=== PATIENT | female | born 1960 | race Caucasian/White ===

== ENCOUNTER → 2016-07-02 | Outpatient (CLI) | payer MEDICARE, MEDICAID ==
[~2016-07-02] MED LIST: ALPR1TAB7 PO; CARI350T21 PO; DIPH50TA9 PO; DOXY100C46 PO; GAB400C PO; OXY20CRT PO; OXY5T PO; PHEN95TA PO
[2016-07-02 17:24] LABS: Basophils # (auto) 0 uL; Basophils % (auto) 0.4 % (0.0-2.0); Eosinophils # (auto) 0.2 uL; Eosinophils % (auto) 2.3 % (0.0-7.0); Hematocrit 44.5 % (36.0-46.0); Hemoglobin 14.1 g/dL (12.2-16.2); Lymphocytes # (auto) 2.7 uL; Lymphocytes % (auto) 26.9 % (10.0-50.0); Mean Corpuscular Hemoglobin 27.5 pg (28.0-32.0); Mean Corpuscular Hgb Conc. 31.6 g/dL (32.0-36.0); Mean Corpuscular Volume 87.1 fL (80.0-100.0); Monocytes # (auto) 0.4 uL; Monocytes % (auto) 4.5 % (0.0-12.0); Neutrophils # (auto) 6.5 uL; Neutrophils % (auto) 65.9 % (37.0-80.0); Platelet Count (auto) 402 10^3/uL (140-450); Red Cell Distribution Width 14.5 % (11.6-16.0); White Blood Cell 9.9 10^3/uL (4.4-10.8)
[2016-07-02 17:53] LABS: Albumin 3.4 g/dL (3.4-5.0); BUN/Creatinine Ratio 13.4; Bilirubin, Total 0.4 mg/dL (0.2-1.0); Calcium 8.9 mg/dL (8.5-10.1); Potassium 4.2 mmol/L (3.5-5.1); Total Protein 8.1 g/dL (6.4-8.2)
[2016-07-02 18:00] LABS: Urine Bilirubin Negative (Negative); Urine Color Yellow (Yellow); Urine Glucose Normal (Normal); Urine Ketone Negative (Negative); Urine Nitrite Negative (Negative); Urine RBC 8 /hpf (0 - 4); Urine Squamous Epithelial Cell FEW /hpf (<5); Urine Urobilinogen Normal (Negative); Urine WBC Clumps PRESENT /hpf (None Seen); Urine pH 7.5 (5.0-8.0)
[2016-07-02 18:01] LABS: Urine Blood 1+ /uL (Negative)
== END | disposition home or self-care (01) ==
LOC: LAB 16:41
PROVIDERS: ATTEND Family Medicine
DX: E11.9 Type 2 diabetes mellitus without complications (principal); E78.00 Pure hypercholesterolemia, unspecified; N39.0 Urinary tract infection, site not specified; D53.9 Nutritional anemia, unspecified
CPT/HCPCS: 36415; 80053; 80061; 81001; 84439; 84443; 85025; 87086

== ENCOUNTER 2020-03-12 08:03 | Inpatient (IN) | payer MEDICARE, MEDICAID ==
[~2020-03-12] VITALS: Ht 175.3 cm; Wt 121.9 kg
[~2020-03-12 08:03] MED LIST changes: -CARI350T21 PO; +CYCL10TA6 PO; -DIPH50TA9 PO; -DOXY100C46 PO; -GAB400C PO; +GABA-339 PO; +IBUP600T27 PO; -OXY5T PO; +PERCOT PO; -PHEN95TA PO
[2020-03-12] MEDS ORDERED: CELECOXIB 100 MG CAP ONE (11:36)
[2020-03-12] MEDS ORDERED: CELECOXIB 100 MG CAP PO ONE (11:45)
[2020-03-12] MEDS ORDERED: ACETAMINOPHEN IV 1000 MG/100ML (10MG/ML) IV ONE (11:45)
[2020-03-12] MEDS ORDERED: PREGABALIN CAPSULE 75 MG CAP PO ONE (11:45)
[2020-03-12] MEDS ORDERED: ceFAZolin 1GM/50ML 100 ML IV ONE (12:04)
[2020-03-12] MEDS ORDERED: TRANEXAMIC ACID 20 ML ONE (12:46)
[2020-03-12] MEDS ORDERED: BUPIVACAINE 0.25% INJ 50ML VIAL ONE (12:46)
[2020-03-12] MEDS ORDERED: VANCOMYCIN HCL 1000 MG VL ONE ×2 (12:47→14:43)
[2020-03-12] MEDS ORDERED: MORPHINE SULF(PF) 0.5MG/ML 10ML VIAL ONE (12:49)
[2020-03-12] MEDS ORDERED: KETOROLAC TROMETH 30 MG/ML 1ML VIAL ONE ×2 (12:49→15:22)
[2020-03-12] MEDS ORDERED: SUCCINYLCHOLINE CHLORIDE 20 MG/ML 10ML VIAL IV ONE (13:33)
[2020-03-12] MEDS ORDERED: LIDOCAINE 1% (LOCAL ANESTH.) PF 5ml SDV ONE (13:33)
[2020-03-12] MEDS ORDERED: ROCURONIUM 10MG/ML 10ML VIAL IV ONE (13:35)
[2020-03-12] MEDS ORDERED: MIDAZOLAM HCL 1MG/1ML-2 ML VIAL ONE (13:35)
[2020-03-12] MEDS ORDERED: METOCLOPRAMIDE HCL 5MG/ml INJ 2ml VIAL ONE (13:37)
[2020-03-12] MEDS ORDERED: ETOMIDATE (2MG/ML) 20ML VIAL IV ONE (13:40)
[2020-03-12] MEDS ORDERED: fentaNYL CITRATE 100 MCG/2 ML VL ONE (13:51)
[2020-03-12] MEDS ORDERED: hydrALAZINE HCL 20 MG/ML VL IV PRN (14:00)
[2020-03-12] MEDS ORDERED: HYDROmorphone HCL 2 MG/ML VL IV PRN ×2 (14:00)
[2020-03-12] MEDS ORDERED: NALOXONE HCL 0.4 MG/ML VIAL IV PRN (14:00)
[2020-03-12] MEDS ORDERED: ONDANSETRON HCL 4 MG/2 ML VIAL IV PRN ×2 (14:00→16:00)
[2020-03-12] MEDS ORDERED: MEPERIDINE HCL (25 MG/ML) 1ML VIAL ONE (15:23)
[2020-03-12] MEDS ORDERED: MORPHINE SULF INJ 2 MG/ML SYRINGE 1ML IV PRN (16:00)
[2020-03-12] MEDS ORDERED: NITROGLYCERIN 0.4 MG SL TAB SL PRN (16:00)
[2020-03-12] MEDS: LACTATED RINGER'S 1,000 ML IV SCH (16:00)
[2020-03-12] MEDS ORDERED: ACETAMINOPHEN 325 MG TAB PO PRN (16:00)
[2020-03-12] MEDS ORDERED: ONDANSETRON HCL 4 MG/2 ML VIAL IV ONE (16:15)
[2020-03-12] MEDS ORDERED: HYDROmorphone HCL 2 MG/ML VL IV ONE (16:15)
[2020-03-12] MEDS ORDERED: HYDROmorphone HCL 2 MG/ML VL ONE (17:06)
--- NOTE | 2020-03-12 17:45 | NUR ---
Pt Arrived on Unit Pt arrived via bed from PACU. Pt is a/ox4 with no s/s of distress or SOB. Pt is on room air and [place] catheter is present. Dressing to L knee is clean, dry, and intact. Ice placed to side and wound vac is present. Safety measures initiated with call light within reach, bed in lowest position and side rails up. Will continue to monitor for changes.
[2020-03-12] MEDS: KETOROLAC TROMETH 30 MG/ML 1ML VIAL IV SCH (17:54)
[2020-03-12] MEDS: OXYCODONE W/ ACETAMINOPHEN 5/325MG TABLET PO SCH ×2 (17:54→21:51)
[2020-03-12] MEDS ORDERED: KETOROLAC TROMETH 30 MG/ML 1ML VIAL IV PRN (18:00)
[2020-03-12 18:09] VITALS: BP 126/84
--- NOTE | 2020-03-12 19:30 | NUR ---
OPENING NOTE Received report from day shift RN. Patient is A&O X's 4 with no s/s of distress and reports pain to left leg rating at a 10/10. Patient just recently received pain medication. Will reassess pain. Educated patient on POC/pain management and to use call light when in need of assistance. Patient verbalized understanding. Patient has left leg in CPM machine at this time as ordered. Dressing to left left is C/D/I. wound vac is secured properly. Circulation to BLE are adequate. Pedal pulses are strong. Cap refill<3. and no change in sensation. Educated patient to inform me if there is any changes. Patient verbalized understanding. Will remove left leg out of CPM at bedtime. Applied SCDs to patient at this time bilaterally. Will continue care.
--- NOTE | 2020-03-12 20:15 | NUR ---
ROUNDS/PAIN REASSESSMENT Patient is resting in bed with eyes closed and no s/s of discomfort noted. Will continue care
[2020-03-12 21:00] VITALS: BP 127/56
[2020-03-12] MEDS: oxyCODONE ER 20 MG TAB PO SCH (21:50)
[2020-03-12] MEDS: DOCUSATE SOD 100 MG CAP PO SCH (21:52)
[2020-03-12] MEDS: GABAPENTIN 300 MG CAP PO SCH (21:52)
[2020-03-12] MEDS: CYCLOBENZAPRINE HCL 10 MG TAB PO SCH (21:52)
[2020-03-12] MEDS: SODIUM CHLOR 0.9% PF (SALINE LOCK) 10ML VIAL/SYR IV SCH (21:53)
[2020-03-12] MEDS: ceFAZolin 1GM 2 GM in D5W 5% 100 ML IV SCH (21:58)
--- NOTE | 2020-03-12 22:00 | NUR ---
PAGED HOSPITALIST patient requesting nicotine patch
[2020-03-12] MEDS: HYDROmorphone HCL 2 MG/ML VL IV PRN (22:35)
--- NOTE | 2020-03-12 23:00 | NUR ---
NOTE CPM machine removed from under patient's leg. Patient is ready for bed and has used CPM during the day for about 8 hrs as ordered. Will reapply again in AM
--- NOTE | 2020-03-12 23:01 | NUR ---
RECEIVED CALL BACK FROM HOSPITALIST new orders received. read back and verified.
[2020-03-12] MEDS ORDERED: NICOTINE 21MG/24 HR TOPICAL PATCH TD ONE (23:15)
[2020-03-13] MEDS: KETOROLAC TROMETH 30 MG/ML 1ML VIAL IV SCH ×5 (00:28→23:46)
--- NOTE | 2020-03-13 01:26 | NUR ---
PAIN REASSESSMENT Patient resting in bed with eyes closed. No s/s of distress or discomfort. Will continue care.
[2020-03-13] MEDS: LACTATED RINGER'S 1,000 ML IV SCH (02:00)
[2020-03-13] MEDS: HYDROmorphone HCL 2 MG/ML VL IV PRN ×2 (03:39→20:12)
[2020-03-13 05:00] VITALS: BP 124/68
[2020-03-13] MEDS: GABAPENTIN 300 MG CAP PO SCH ×3 (06:11→21:28)
[2020-03-13] MEDS: OXYCODONE W/ ACETAMINOPHEN 5/325MG TABLET PO SCH ×3 (06:11→17:49)
[2020-03-13] MEDS: SODIUM CHLOR 0.9% PF (SALINE LOCK) 10ML VIAL/SYR IV SCH ×4 (06:11→22:18)
--- NOTE | 2020-03-13 06:34 | NUR ---
[facility]
--- NOTE | 2020-03-13 06:45 | NUR ---
[place] catheter dc'd Order to discontinue [place] catheter. [place] dc'd with clean technique following deflation of balloon. Patient tolerated well with no complaints of pain. Continue care.
--- NOTE | 2020-03-13 07:00 | NUR ---
pharmacy called again regarding sending up the 0600 ancef. Per pharmacy, they will do it now.
[2020-03-13] MEDS: ceFAZolin 1GM 2 GM in D5W 5% 100 ML IV SCH ×4 (07:31→21:25)
--- NOTE | 2020-03-13 07:35 | NUR ---
end of shift/ pain reassessment patient resting in bed with no s/s of distress or discomfort. Patient not c/o any pain at this time. Will endorse care.
--- NOTE | 2020-03-13 08:00 | NUR ---
Opening Shift Note Assumed care of patient, awake, alert and oriented X4. No S/S of distress/SOB, complains of left knee pain, 11/01. Tele# [id number], sinus rhythm @ 74 bpm. IV to right hand, 20 gauge, patent and saline locked. Left knee dressing clean, dry and intact, wound vac in place, no signs of leaks and no drainage in canister. Bilateral SCD's in place. Instructed on POC and to call for assist PRN, verbalized understanding. Bed locked, in lowest position, call light within reach, will continue to monitor for changes Q1hr and PRN.
[2020-03-13 09:00] VITALS: BP 109/69
[2020-03-13] MEDS ORDERED: cefTRIAXone 1GM/50ML D5W 50 ML IV SCH (09:00)
[2020-03-13] MEDS: DOCUSATE SOD 100 MG CAP PO SCH ×2 (10:03→21:28)
[2020-03-13] MEDS: ENOXAPARIN SOD 40 MG/0.4 ML SYRINGE SC SCH (10:03)
[2020-03-13] MEDS: oxyCODONE ER 20 MG TAB PO SCH (10:03)
[2020-03-13 11:16] LABS: Hematocrit 35.3 % (36.0-46.0); Hemoglobin 11.5 g/dL (12.2-16.2)
[2020-03-13 13:00] VITALS: BP 115/51
[2020-03-13] MEDS ORDERED: ALBUTEROL SULF 2.5 MG/0.5ML(0.5%) NEB SOLN NEB PRN (15:30)
[2020-03-13] MEDS ORDERED: NICOTINE 21MG/24 HR TOPICAL PATCH TD ONE (15:30)
[2020-03-13] MEDS ORDERED: THROAT LOZENGES(CEPASTAT) MT ONE (15:30)
[2020-03-13] MEDS ORDERED: IPRATROPIUM BROM 0.5 MG/2.5ML INH SOL NEB PRN (15:30)
--- NOTE | 2020-03-13 15:30 | NUR ---
ROUNDS Dr Grider at bedside for rounds, new orders received and followed through. Patient updated on plan of care, verbalized understanding.
[2020-03-13 17:00] VITALS: BP 112/51
--- NOTE | 2020-03-13 19:20 | NUR ---
Care endorsed to CARLOS EDUARDO Singleton, night nurse.
--- NOTE | 2020-03-13 19:30 | NUR ---
Opening Shift Note Assumed care of patient, awake and alert. No S/S of distress/SOB. Dressing to left knee dry and intact with wound vac on, noted no drainage in wound vac at this time. Updated on POC and to call for assist as needed, patient verbalized understanding. Bed in lowest position, call light within reach, will continue to monitor for changes Q1hr and PRN.
[2020-03-13 21:00] VITALS: BP 128/64
[2020-03-13] MEDS: oxyCODONE ER 10 MG TAB PO SCH (21:28)
[2020-03-13] MEDS: CYCLOBENZAPRINE HCL 10 MG TAB PO SCH (21:28)
--- NOTE | 2020-03-13 21:30 | NUR ---
IV on RW leaking at this time, removed with catheter intact, patient tolerated well. IV insertion IV access obtained, via clean sterile technique by inserting 22 gauge catheter at after [1] attempt(s). IV secured properly. No trauma to site. Patient tolerated well. NOTE: []
[2020-03-13] MEDS: THROAT LOZENGES(CEPASTAT) MT PRN (22:19)
--- NOTE | 2020-03-13 22:27 | NUR ---
Respiratory note: PT SEEN AND ASSESSED FOR PRN MED NEB TX AT 2227. TX IS NOT INDICATED AT THIS TIME. PT DISPLAYING NO SIGNS OF DISTRESS. HR 71 RR 18 SP02 95% ON ROOM AIR. PT AWARE TO CALL FOR RT IF ANY DISTRESS OCCURS.
[2020-03-14] MEDS: OXYCODONE W/ ACETAMINOPHEN 5/325MG TABLET PO PRN ×3 (00:18→18:24)
[2020-03-14 02:33] VITALS: BP 128/64
[2020-03-14 05:00] VITALS: BP 151/79
[2020-03-14] MEDS: KETOROLAC TROMETH 30 MG/ML 1ML VIAL IV SCH ×2 (05:58→11:43)
[2020-03-14] MEDS: oxyCODONE ER 10 MG TAB PO SCH ×3 (05:58→22:07)
[2020-03-14] MEDS: GABAPENTIN 300 MG CAP PO SCH ×3 (05:58→22:06)
[2020-03-14 06:04] LABS: Hematocrit 35.6 % (36.0-46.0); Hemoglobin 11.4 g/dL (12.2-16.2)
--- NOTE | 2020-03-14 06:32 | NUR ---
Called pharmacy and spoke to a staff that scheduled Ancef is not available in the [facility]
[2020-03-14] MEDS: ceFAZolin 1GM 2 GM in D5W 5% 100 ML IV SCH ×3 (07:00→22:01)
--- NOTE | 2020-03-14 08:00 | NUR ---
Opening Shift Note Assumed care of patient, awake, alert and oriented X4. No S/S of distress/SOB, complains of left knee pain, 10/01. Tele# 54, sinus rhythm @ 72 bpm. IV to left hand, 22 gauge, patent and saline locked. Left knee dressing clean, dry and intact, wound vac in place, no signs of leaks and no drainage in canister. Bilateral SCD's in place. Instructed on POC and to call for assist PRN, verbalized understanding. Bed locked, in lowest position, call light within reach, will continue to monitor for changes Q1hr and PRN
[2020-03-14 08:49] VITALS: BP 130/50
[2020-03-14] MEDS: ENOXAPARIN SOD 40 MG/0.4 ML SYRINGE SC SCH (10:00)
[2020-03-14] MEDS: DOCUSATE SOD 100 MG CAP PO SCH ×2 (10:00→22:06)
[2020-03-14] MEDS: SODIUM CHLOR 0.9% PF (SALINE LOCK) 10ML VIAL/SYR IV SCH ×2 (10:00→22:01)
[2020-03-14] MEDS: NICOTINE 21MG/24 HR TOPICAL PATCH TD SCH (10:01)
[2020-03-14 13:00] VITALS: BP 148/68
--- NOTE | 2020-03-14 14:10 | NUR ---
assessment re: ss consult dc planning Patient is a 59 year old female who is alert and oriented. Prior to admission patient lived home with family and functioned with assistance. Per patient she will return home on discharge. Patient has a fww, rollator, wheelchair, and a cane for home use. Patients PCP is Dr Vega. Patient has a caregiver for cooking, cleaning, and errands. Patient has been admitted for left knee replacement. Patient will need home health for PT and a CPM on discharge. Patient is requesting [email or web address]. I have requested order from Adalgisa THIBODEAUX. I informed patient she has a right to participate in any and all discharge planning. Patient has a POA and advanced directive. Patient verbalized understanding and agreed to discharge plan home. Addendum: 03/14/20 at 1417 by Namrata QUEEN Amended: Links added.
[2020-03-14] MEDS ORDERED: hydrALAZINE HCL 25 MG TAB PO PRN (14:30)
[2020-03-14 16:50] VITALS: BP 133/61
[2020-03-14] MEDS: HYDROmorphone HCL 2 MG/ML VL IV PRN ×2 (17:02→21:22)
[2020-03-14] MEDS: THROAT LOZENGES(CEPASTAT) MT PRN (17:04)
--- NOTE | 2020-03-14 19:14 | NUR ---
Care endorsed to CARLOS EDUARDO Benito, night nurse.
--- NOTE | 2020-03-14 19:44 | NUR ---
ASSESSED PT @ THIS TIME FOR PRN MED NEB TX. PT IS AWAKE AND ALERT AND RESTING IN BED. SHE STATES HER BREATHING IS DOING FINE, JUST C/O KNEE PAIN. NO RESPIRATORY DISTRESS NOTED. CURRENTLY ON R/A SPO2 98%, HR 86, RR 20 AND BS ARE CLEAR. SHE IS AWARE TO CALL IF SHE FEELS SOB.
[2020-03-14] MEDS: CYCLOBENZAPRINE HCL 10 MG TAB PO SCH (22:06)
[2020-03-14 22:17] VITALS: BP 147/63
[2020-03-15] MEDS: HYDROmorphone HCL 2 MG/ML VL IV PRN ×5 (05:08→23:00)
[2020-03-15 05:11] VITALS: BP 152/84
[2020-03-15 05:45] VITALS: BP 148/86
[2020-03-15] MEDS: GABAPENTIN 300 MG CAP PO SCH ×3 (06:01→21:13)
[2020-03-15] MEDS: oxyCODONE ER 10 MG TAB PO SCH ×3 (06:02→21:15)
[2020-03-15 06:24] LABS: Hematocrit 36.1 % (36.0-46.0); Hemoglobin 11.6 g/dL (12.2-16.2)
--- NOTE | 2020-03-15 06:45 | NUR ---
Called pharmacy and spoke to a staff that scheduled Ancef is due at 0600. Requested medicine to be bulleted and per staff, they will send it in 20 mins
[2020-03-15] MEDS: ceFAZolin 1GM 2 GM in D5W 5% 100 ML IV SCH ×3 (07:13→21:28)
--- NOTE | 2020-03-15 08:20 | NUR ---
Respiratory note: PT AWAKE, AND ALERT. NO RESPIRATORY DISTRESS NOTED. SPO2 98% ON RA, HR 85, RR 18, BS CLEAR BILATERALLY. PRN MEDNEB TX NOT INDICATED AT THIS TIME. PT INFORMED TO PUSH CALL BUTTON IF INCREASED WOB, SOB, OR WHEEZING OCCURS. WILL CONTINUE TO MONITOR PT.
[2020-03-15] MEDS: DOCUSATE SOD 100 MG CAP PO SCH ×2 (08:48→21:13)
[2020-03-15] MEDS: SODIUM CHLOR 0.9% PF (SALINE LOCK) 10ML VIAL/SYR IV SCH (08:48)
[2020-03-15] MEDS: NICOTINE 21MG/24 HR TOPICAL PATCH TD SCH (08:49)
[2020-03-15] MEDS: ENOXAPARIN SOD 40 MG/0.4 ML SYRINGE SC SCH (08:49)
[2020-03-15 09:00] VITALS: BP 163/83
[2020-03-15] MEDS: OXYCODONE W/ ACETAMINOPHEN 5/325MG TABLET PO PRN ×2 (11:34→18:02)
[2020-03-15] MEDS: amLODIPine BESYLATE 5 MG TAB PO SCH (11:37)
--- NOTE | 2020-03-15 12:19 | NUR ---
Nutrition Assessment Est energy needs 0338-1233 kcal (11-14 kcal/kg BW 120kg) Est protein needs 66-79g (1-1.2g/kg IBW 66kg) Will reassess prn. Addendum: 03/15/20 at [address] Amended: Links added.
[2020-03-15] MEDS: ALPRAZolam 0.5 MG TAB PO PRN ×2 (12:29→21:16)
[2020-03-15 13:00] VITALS: BP 131/64
--- NOTE | 2020-03-15 15:22 | NUR ---
Pt unable to participate in 2 attempts at PT treatment due to severe pain. CPM applied and RN aware.
[2020-03-15 17:00] VITALS: BP 110/53
--- NOTE | 2020-03-15 19:55 | NUR ---
Opening Shift Note Assumed care of patient, awake and alert. No S/S of distress/SOB ,c/o pain 7/10 level of the left knee. Instructed on POC and to call for assist PRN, will continue to monitor for changes Q1hr and PRN.Medicated with Hydromorphone 1mg.i.v.p. as needed.
--- NOTE | 2020-03-15 20:00 | NUR ---
Patient requested to remove her CPM machine already , done as requested.
[2020-03-15] MEDS: CYCLOBENZAPRINE HCL 10 MG TAB PO SCH (21:13)
[2020-03-15] MEDS: THROAT LOZENGES(CEPASTAT) MT PRN (21:29)
[2020-03-15 22:04] VITALS: BP 120/50
[2020-03-16] VITALS (7 sets, daily range): BP systolic 108–142; BP diastolic 58–78
[2020-03-16] MEDS: SODIUM CHLOR 0.9% PF (SALINE LOCK) 10ML VIAL/SYR IV SCH ×2 (00:15→09:55)
[2020-03-16] MEDS: OXYCODONE W/ ACETAMINOPHEN 5/325MG TABLET PO PRN ×3 (01:04→20:06)
[2020-03-16] MEDS: oxyCODONE ER 10 MG TAB PO SCH ×2 (05:09→14:00)
[2020-03-16] MEDS: ceFAZolin 1GM 2 GM in D5W 5% 100 ML IV SCH ×2 (05:10→14:31)
[2020-03-16] MEDS: GABAPENTIN 300 MG CAP PO SCH ×2 (05:15→14:00)
[2020-03-16 06:23] LABS: Hematocrit 33.4 % (36.0-46.0); Hemoglobin 10.7 g/dL (12.2-16.2)
[2020-03-16] MEDS: HYDROmorphone HCL 2 MG/ML VL IV PRN ×3 (06:34→17:49)
--- NOTE | 2020-03-16 07:07 | NUR ---
Respiratory note: ASSESSED PT FOR PRN MEDNEB TX. HR 76, RR 16, SPO2 97% ON ROOM AIR. BREATH SOUNDS CLEAR T/O. PT DENIES SOB. NO S/S OF DISTRESS. MEDNEB TX NOT INDICATED AT THIS TIME. PT AWARE TO CALL FOR RT IF NEEDED.
--- NOTE | 2020-03-16 07:36 | NUR ---
Opening Shift Note Assumed care of patient from noc shift rn, awake, A/O x4. No S/S of distress, denies SOB, reports tolerable level of pain at this time and will. Instructed on POC and to call for assist PRN, will continue to monitor for changes Q1hr and PRN.
--- NOTE | 2020-03-16 07:41 | NUR ---
Report given to Colleen Marshall, patient is resting , respiratory distress.
--- NOTE | 2020-03-16 08:33 | NUR ---
medicated patient for 9/10 left leg pain. Will continue to monitor for changes.
[2020-03-16] MEDS: DOCUSATE SOD 100 MG CAP PO SCH (09:55)
[2020-03-16] MEDS: amLODIPine BESYLATE 5 MG TAB PO SCH (09:56)
[2020-03-16] MEDS: ENOXAPARIN SOD 40 MG/0.4 ML SYRINGE SC SCH (09:56)
[2020-03-16] MEDS: NICOTINE 21MG/24 HR TOPICAL PATCH TD SCH (09:58)
--- NOTE | 2020-03-16 12:17 | NUR ---
D/C Planning Per social service consult for a walker and bedside commode. Patient informed me she has a walker and walker with seat at home. Faxed clinical information to [facility] requesting for the bedside commode to be deliver to patient home . Informed patient. Patient verbalize understanding.
--- NOTE | 2020-03-16 14:31 | NUR ---
Patient aware of discharge plan. Per patient her only ride home, will be available at 1999. crankshaft straightener, Elias made aware.
--- NOTE | 2020-03-16 18:14 | NUR ---
Respiratory note: PT RECIEVED ON RA. PT AWAKE AND ALERT. NO RESP DISTRESS NOTED. SPO2 94%, HR 80, RR 18, BS CLEAR T/O. NO PRN TX INDICATED AT THIS TIME. PT AWARE TO CALL FOR PRN TX IF SOB/WHEEZING.
--- NOTE | 2020-03-16 20:45 | NUR ---
Discharge papers and instructions given including prescription to patient and understood and signed, removed the i.v.line and tele box. Wheeled down in the front lobby by the RETAIL CASHIER Kalani to private car.
--- NOTE | 2020-03-16 20:45 | NUR ---
Discharged in good condition ,pick-up by the grand daughter, with all her belongings.
== END 2020-03-16 20:45 | disposition home health service (06) | DRG 470 ==
LOC: EDSTATUS 09:30 → OVERFLOW 11:01 → TELE-WESTW 18:07
PROVIDERS: ADMIT Orthopaedic Surgery Adult Reconstructive Orthopaedic Surgery; ATTEND Internal Medicine
PROC: 0SBD0ZZ Excision of Left Knee Joint, Open Approach (ICD-10-PCS; 2020-03-12)
PROC: 3E0U329 Introduction of Other Anti-infective into Joints, Percutaneous Approach (ICD-10-PCS; 2020-03-12)
PROC: 8E0YXBZ Computer Assisted Procedure of Lower Extremity (ICD-10-PCS; 2020-03-12)
PROC: 0SRD069 Replacement of Left Knee Joint with Oxidized Zirconium on Polyethylene Synthetic Substitute, Cemented, Open Approach (ICD-10-PCS; principal; 2020-03-12 13:35)
DX: M17.12 Unilateral primary osteoarthritis, left knee (principal); F11.20 Opioid dependence, uncomplicated; Z68.41 Body mass index [BMI] 40.0-44.9, adult; I10 Essential (primary) hypertension; Z20.828 Contact with and (suspected) exposure to other viral communicable diseases; J44.9 Chronic obstructive pulmonary disease, unspecified; E11.9 Type 2 diabetes mellitus without complications; E66.9 Obesity, unspecified; M65.862 Other synovitis and tenosynovitis, left lower leg; G89.29 Other chronic pain; M54.9 Dorsalgia, unspecified; F41.9 Anxiety disorder, unspecified; F32.9 Major depressive disorder, single episode, unspecified; Z82.3 Family history of stroke; Z82.49 Family history of ischemic heart disease and other diseases of the circulatory system; Z90.710 Acquired absence of both cervix and uterus; Z88.2 Allergy status to sulfonamides
CPT/HCPCS: 36415; 73562; 85014; 85018; 86850; 86900; 86901; 87070; 87075; 87205; 97110; 97116; 97163; G0378; J0131; J0330; J0690; J1885; J2250; J2405; J3490; J7060